=== PATIENT | male | born 1940 | race Caucasian/White ===

== ENCOUNTER 2019-02-06 00:58 | Inpatient (IN) | payer MEDICARE ==
[~2019-02-06] VITALS: Ht 172.7 cm; Wt 67.6 kg
[2019-02-06 01:41] LABS: *BILIRUBIN,URIN NEGATIVE (NEGATIVE); *BLOOD, URINE NEGATIVE (NEGATIVE); *CLARITY,URINE CLEAR (CLEAR); *COLOR,URINE YELLOW (YELLOW); *KETONES,URINE NEGATIVE (NEGATIVE); *UROBILINOGEN,URINE 0.2 E.U./dl (NORMAL); LEUKOCYTE ESTERASE ,URINE NEGATIVE (NEGATIVE); NITRITE, URINE NEGATIVE (NEGATIVE); PH,URINE 6.5 (5.0-8.0); UGLUCOSE NEGATIVE (NEGATIVE)
[2019-02-06] MEDS ORDERED: ACETAMINOPHEN 325 MG TABLET PO PRN (03:15)
[2019-02-06] MEDS ORDERED: LORAZEPAM 0.5 MG TABLET PO PRN (03:15)
[2019-02-06] MEDS ORDERED: BLOOD SUGAR DIAGNOSTIC 1 EACH STRIP VI ONE (03:15)
[2019-02-06] MEDS ORDERED: MAGNESIUM HYDROXIDE 30 ML LIQUID UDC PO PRN (03:15)
[2019-02-06] MEDS ORDERED: MAG HYDROX/AL HYDROX/SIMETH 30 ML LIQUID UDC PO PRN (03:15)
[2019-02-06] MEDS ORDERED: TEMAZEPAM 7.5 MG CAPSULE PO PRN (03:15)
[2019-02-06 07:58] VITALS: BP 119/65
[2019-02-06] MEDS: DIVALPROEX 125 MG TABLET.DR PO SCH ×2 (10:01→20:28)
[2019-02-06 16:44] VITALS: BP 122/70
[2019-02-06] MEDS: QUETIAPINE FUMARATE 25 MG TABLET PO SCH (20:28)
[2019-02-06 20:44] VITALS: BP 119/66
[2019-02-07 07:30] VITALS: BP 128/69
[2019-02-07 07:50] LABS: BASOPHILS % (AUTO) 0.6 % (0.0-2.0); EOSINOPHILS # (AUTO) 0.1 K/uL (0.0-0.7); EOSINOPHILS % (AUTO) 1.4 % (0.0-7.0); HEMATOCRIT 42.9 % (36.7-47.1); HEMOGLOBIN 14.1 g/dL (12.5-16.3); LYMPHOCYTES # (AUTO) 1.7 K/uL (20.0-40.0); LYMPHOCYTES % (AUTO) 29.2 % (20.5-51.5); MEAN CORPUSCULAR HEMOGLOBIN 30.9 uug (23.8-33.4); MEAN CORPUSCULAR HGB CONC 33 g/dL (32.5-36.3); MONOCYTES # (AUTO) 0.6 K/uL (2.0-10.0); MONOCYTES % (AUTO) 10.7 % (0.0-11.0); NEUTROPHILS # (AUTO) 3.4 K/uL (1.8-8.9); NEUTROPHILS % (AUTO) 58.1 % (38.5-71.5); PLATELET COUNT (AUTO) 270 K/uL (152-348); RED BLOOD CELL COUNT(AUTO) 4.57 MIL/uL (4.06-5.63); WHITE BLOOD COUNT (AUTO) 5.9 K/uL (3.6-10.2)
[2019-02-07 07:57] LABS: ALANINE AMINOTRANSFERASE 15 U/L (16-63); ALKALINE PHOSPHATASE 59 U/L (50-136); ASPARTATE AMINOTRANSFERASE 11 U/L (15-37); CARBON DIOXIDE 31 mmol/L (21-32); CHLORIDE 102 mmol/L (98-107); CREATININE 0.8 mg/dL (0.6-1.3); GLUCOSE 98 mg/dL (74-106); POTASSIUM 4.2 mmol/L (3.5-5.1); TOTAL PROTEIN, SERUM 7.3 g/dL (6.4-8.2); UREA NITROGEN, BLOOD 11 mg/dL (7-18)
[2019-02-07] MEDS: DIVALPROEX 125 MG TABLET.DR PO SCH ×2 (08:47→20:31)
[2019-02-07 16:00] VITALS: BP 113/58
[2019-02-07 20:23] VITALS: BP 145/70
[2019-02-07] MEDS: QUETIAPINE FUMARATE 25 MG TABLET PO SCH (20:31)
[2019-02-08 07:30] VITALS: BP_SYST 104; BP_SYST 107; BP_DIAS 56; BP_DIAS 71
[2019-02-08] MEDS: DIVALPROEX 125 MG TABLET.DR PO SCH ×2 (09:19→20:07)
[2019-02-08] MEDS: QUETIAPINE FUMARATE 25 MG TABLET PO SCH (20:07)
[2019-02-08 20:21] VITALS: BP 135/64
[2019-02-09 07:30] VITALS: BP 128/71
[2019-02-09] MEDS: DIVALPROEX 125 MG TABLET.DR PO SCH ×2 (08:40→20:50)
[2019-02-09 15:14] VITALS: BP 140/65
[2019-02-09 20:00] VITALS: BP 150/68
[2019-02-09] MEDS: QUETIAPINE FUMARATE 25 MG TABLET PO SCH (20:50)
[2019-02-10 07:30] VITALS: BP 135/64
[2019-02-10] MEDS: DIVALPROEX 125 MG TABLET.DR PO SCH ×3 (08:00→20:11)
[2019-02-10 15:39] VITALS: BP 134/62
[2019-02-10 19:41] VITALS: BP 136/57
[2019-02-10] MEDS: QUETIAPINE FUMARATE 25 MG TABLET PO SCH (20:11)
[2019-02-11 07:30] VITALS: BP 139/76
[2019-02-11] MEDS: DIVALPROEX 125 MG TABLET.DR PO SCH ×3 (08:10→20:39)
[2019-02-11 16:00] VITALS: BP 134/65
[2019-02-11] MEDS: QUETIAPINE FUMARATE 25 MG TABLET PO SCH (20:39)
[2019-02-11 21:07] VITALS: BP 136/69
[2019-02-12 07:41] VITALS: BP 129/69
[2019-02-12] MEDS: DIVALPROEX 125 MG TABLET.DR PO SCH ×3 (08:10→20:47)
[2019-02-12 16:25] VITALS: BP 144/69
[2019-02-12] MEDS: QUETIAPINE FUMARATE 25 MG TABLET PO SCH (20:47)
[2019-02-12 21:02] VITALS: BP 129/67
[2019-02-13 07:30] VITALS: BP 127/65
[2019-02-13] MEDS: DIVALPROEX 125 MG TABLET.DR PO SCH ×2 (08:39→16:40)
[2019-02-13 16:00] VITALS: BP 144/67
[2019-02-13 20:02] VITALS: BP 141/68
[2019-02-13] MEDS: QUETIAPINE FUMARATE 25 MG TABLET PO SCH (20:47)
[2019-02-14 07:58] VITALS: BP 124/58
[2019-02-14] MEDS: DIVALPROEX 125 MG TABLET.DR PO SCH ×2 (08:07→16:05)
[2019-02-14 15:44] VITALS: BP 119/63
[2019-02-14] MEDS: QUETIAPINE FUMARATE 25 MG TABLET PO SCH (20:08)
[2019-02-14 20:11] VITALS: BP 134/57
[2019-02-15 07:30] VITALS: BP 138/60
[2019-02-15] MEDS: DIVALPROEX 125 MG TABLET.DR PO SCH ×2 (08:47→16:28)
[2019-02-15 17:00] VITALS: BP 130/61
[2019-02-15 20:00] VITALS: BP 128/55
[2019-02-15] MEDS: QUETIAPINE FUMARATE 25 MG TABLET PO SCH (20:09)
[2019-02-16 08:02] VITALS: BP 127/70
[2019-02-16] MEDS: DIVALPROEX 125 MG TABLET.DR PO SCH (08:23)
== END 2019-02-16 16:00 | DRG 885 ==
LOC: ER 01:02 → GPS 03:02
PROVIDERS: ADMIT Psychiatry & Neurology Psychiatry; ATTEND Nurse Practitioner Acute Care
DX: F39 Unspecified mood [affective] disorder (principal); Z59.0 Homelessness; F29 Unspecified psychosis not due to a substance or known physiological condition; F03.90 Unspecified dementia, unspecified severity, without behavioral disturbance, psychotic disturbance, mood disturbance, and anxiety
CPT/HCPCS: 36415; 71045; 85025; 87086; 93005; A4663